=== PATIENT | male | born 1955 ===

== ENCOUNTER 2017-09-07 06:43 | Day surgery (SDC) | payer BC ==
[~2017-09-07] VITALS: Ht 175.3 cm; Wt 76.9 kg
[~2017-09-07 06:43] MED LIST: B Complete1 EACH PO; CORAL CALCIUM PO; FINA5 PO; Hair, Skin & N1 EACH PO; INDO50; LOSA25 PO; MAGNESIUM ZINC PO; MULVITB&C PO; OMEG1CAP30 PO; RESVERATROL PO; SILD25T PO; TAMS.4ER PO; UBID10 PO
== END 2017-09-07 08:55 | disposition home or self-care (01) ==
LOC: ORSCSDS 06:43
PROVIDERS: Surgery
PROC: 0DBM8ZX Excision of Descending Colon, Via Natural or Artificial Opening Endoscopic, Diagnostic (ICD-10-PCS; principal; 2017-09-07 08:00)
DX: Z12.11 Encounter for screening for malignant neoplasm of colon (principal); D12.4 Benign neoplasm of descending colon; I10 Essential (primary) hypertension; Z87.891 Personal history of nicotine dependence; Z79.899 Other long term (current) drug therapy
CPT/HCPCS: 88305; J2405; J7120